=== PATIENT | female | born 1975 | race Two or more races ===

== ENCOUNTER 2016-09-24 15:25 | Emergency (ER) | payer SELFPAY ==
[2016-09-24] MEDS ORDERED: METHYLERGONOVINE MALEATE 0.2 MG TABLET PO ONE (16:25)
[2016-09-24 16:38] LABS: BASOPHIL# 0.1 X 10^3uL (0.0-0.1); EOSINOPHILS 1.7 % (0.0-6.0); EOSINOPHILS# 0.1 X 10^3uL (0.0-0.4); HEMATOCRIT 40.1 % (36.0-48.0); HEMOGLOBIN 13.2 g/dL (12.0-16.0); LYMPHOCYTES 18.2 % (20.0-40.0); LYMPHOCYTES# 1.5 X 10^3uL (0.8-3.8); MEAN CELL VOLUME 94.1 fL (80.0-100.0); MEAN PLATELET VOLUME 6.6 fL (7.4-10.4); MONOCYTES 5.3 % (2.0-10.0); MONOCYTES# 0.4 X 10^3uL (0.2-1.0); NEUTROPHILS 73.8 % (54.0-75.0); NEUTROPHILS# 6.2 X 10^3uL (2.6-6.7); PLATELET COUNT 419 X 10^3uL (130-440); RED BLOOD COUNT 4.26 X 10^6uL (4.20-6.10); RED CELL DISTRIBUTION WIDTH 15.4 % (11.5-14.5); WHITE BLOOD COUNT 8.3 X 10^3uL (3.9-10.7)
[2016-09-24 16:56] LABS: BLOOD UREA NITROGEN 7 mg/dL (7-17); CALCIUM 8.8 mg/dL (8.4-10.2); CHLORIDE 107 mmol/L (98-107); CREATININE 0.5 mg/dL (0.5-1.0); EST GLOMERULAR FILTRATION RATE > 60 mL/min; GLUCOSE 101 mg/dL (70-100); SODIUM 138 mmol/L (137-145)
--- NOTE | 2016-09-24 17:10 | ER PHYSICIAN DOCUMENTATION ---
Physician Documentation [facility] ([place], [place]) Name:Violet Engel Age:41 yrs Sex:Female :1975 Arrival Date:09/24/2016 Time:15:25 Bed3 Private MD:Yamil James ED, Chris Disposition: 09/24/16 16:54 Discharged to Home/Self Care. Impression: Complete Unspecified /Miscarriage w/o Mention of Complication. - Condition is Good. - Discharge Instructions: Miscarriage - , Complete (Spontaneous). - Medical Reconciliation form form. - Follow up: Yamil James MD; When: Tomorrow; Reason: Recheck today's complaints, Continuance of care. - Problem is new. - Symptoms are resolved. - Notes: Drink 2 - 3 quarts of water every day. Take Ibuprofen 600mg by mouth every 6 hours with food for pain. Follow up with Dr. Matute tomorrow afternoon in the clinic. HPI: 09/24 15:30 This 41 yrs old OOther Female presents to ER via Private Vehicle with complaints of cd Vaginal Bleeding. 15:30 The patient presents with vaginal bleeding that is heavy, with clots, with tissue, cd reports using 20 pads or tampons per day. Onset: The symptoms/episode began/occurred acutely, yesterday. Modifying factors: The symptoms are alleviated by nothing, the symptoms are aggravated by nothing. Associated signs and symptoms: Pertinent positives: cramping, Pertinent negatives: dysuria, fever, nausea, vomiting. Ectopic Risk: No risk factors noted. The patient is 7 weeks and US confirmed an IUP with sac. A second recent US revealed no sac and Dr. Matute felt she was having an Incomplete Ab yesterday. Her Vaginal bleeding increased today with clots and tissue passed. Her cramps are now gone. She was dizzy at home, but had no syncope.. 15:40 A recent Rh factor was positive. 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 Ibuprofen Oral - PMHx: None; - PSHx: Ortho repair; ; - Tetanus: unknown. - Ebola Screening: : No symptoms or risks identified at this time. . - Immunization history: Flu Vaccine unknown. - Social history: Smoking status: Patient uses tobacco products, current every day smoker. Patient uses alcohol occasionally. ROS: 15:45 Positive for pelvic pain, vaginal bleeding. cd 15:45 Constitutional: Positive for poor PO intake, Negative for chills, fever. 15:45 : Positive for pelvic pain, vaginal bleeding, Negative for urinary symptoms, flank pain, burning with urination. 15:45 All other systems are negative. Exam: 15:50 Cardiovascular: Regular rate and rhythm with a normal S1 and S2. No gallops, murmurs, cd or rubs. Normal PMI, no JVD. No pulse deficits. Respiratory: Lungs have equal breath sounds bilaterally, clear to auscultation and percussion. No rales, rhonchi or wheezes noted. No increased work of breathing, no retractions or nasal flaring. 15:50 Back: No spinal tenderness. No costovertebral tenderness. Full range of motion. cd 15:50 Constitutional: The patient appears alert, awake, non-diaphoretic, non-toxic, well developed, well nourished, pale. 15:50 Abdomen/GI: Inspection: abdomen appears normal, Bowel sounds: normal, Palpation: abdomen is soft and non-tender, Rectal exam: the exam is deferred. 15:50 : CVA tenderness, is absent, Pelvic Exam: External exam: is normal, Speculum exam: mild bleeding, blood clots in vaginal vault, os that is open, tissue in cervix is seen, tissue in vagina is seen, All products of conception removed with gentle traction on tissue. Miscarriage completed. Minimal BR blood after tissue removed., Bladder: is normal. Vital Signs: 15:44 BP 114 / 73; Pulse 70; Resp 18; Temp 98.3; Pulse Ox 92% ; Weight 72.57 kg; Height 5 ft. ma 0 in. (152.40 cm); Pain 3/10; 16:00 BP 118 / 69; Pulse 71; Pulse Ox 96% on R/A; ma 17:09 BP 114 / 88; Pulse 68; Pulse Ox 98% ; ma 15:44 Body Mass Index 31.25 (72.57 kg, 152.40 cm) ma MDM: 15:35 Data interpreted: Pulse oximetry: on room air is 98 %. Interpretation: normal. cd 15:39 Patient medically screened. cd 16:00 Differential diagnosis: inevitable Ab, complete Ab. cd 16:45 Counseling: I had a detailed discussion with the patient and/or guardian regarding: the cd historical points, exam findings, and any diagnostic results supporting the discharge/admit diagnosis, lab results, the need for outpatient follow up, for a recheck, for a referral to a specialist, an OB/Gyne specialist, to return to the emergency department if symptoms worsen or persist or if there are any questions or concerns that arise at home. 16:48 Response to treatment: the patient's symptoms have resolved after treatment, the cd patient's condition has returned to base line, patient is well hydrated. and as a result, I will discharge patient. 16:50 Data reviewed: vital signs, nurses notes, old medical records, lab test result(s), CBC, cd HCG, and as a result, I will discharge patient, administer IV fluids, NS bolus, Give Toradol IV (which she refused and Methergine 0.2 mg PO. 16:52 Physician consultation: Yamil James MD was called at 16:40, was contacted at 16:40, regarding consult, patient's condition, outpatient follow-up, tomorrow. 09/24 16:40 Order name: CBC AUTO DIF, MDIF/RMOR IF IND EDMS 09/24 16:53 Interpretation: Normal. Dispensed Medications: 15:45 Drug: NS 0.9% 1000 ml; Volume: 1000 ml; Route: IV; Rate: 150 ml/hr; Site: right ma antecubital; Delivery: [place] Tubing; 15:52 Drug: NS 0.9% 1000 ml; Route: IV; Rate: bolus; Site: right forearm; Delivery: [place] ma Tubing; 16:41 Follow up: IV Status: Completed infusion; IV Intake: 1000ml ma 16:19 Drug: Methergine 0.2 mg; Route: PO; ma 17:10 Follow up: Response: No adverse reaction ma 16:31 Not Given (Patient Refused): Toradol 30 mg IVP once ma Signatures: Joi Cohen, RN RN Bryant Lee MD MD
--- NOTE | 2016-09-24 17:10 | ER NURSING DOCUMENTATION ---
Nurse's Notes [facility] Name:Violet Engel Age:41 yrs Sex:Female :1975 Arrival Date:09/24/2016 Time:15:25 Bed3 Private MD:Yamil James Diagnosis:Complete Unspecified /Miscarriage w/o Mention of Complication Presentation: 09/24 15:39 Presenting complaint: Patient states: Pt states she is 7 weeks confirmed by ma ultrasound and Dr Matute States has had bleeding and cramping since yesterday States has used 20 pads since yesterday. Transition of care: Home. 15:39 Method Of Arrival: Private Vehicle ma 15:39 Acuity: JAN 3 ma Triage Assessment: 15:44 General: Appears in no apparent distress, Behavior is cooperative. Pain: Complains of ma pain in suprapubic area. : Reports vaginal bleeding that is heavy flow. VP MARKETING: 15:30 Verified cd Historical: - Allergies: No known drug Allergies; - Home Meds: 1. Ibuprofen Oral - PMHx: None; - PSHx: Ortho repair; ; - Tetanus: unknown. - Ebola Screening: : No symptoms or risks identified at this time. . - Immunization history: Flu Vaccine unknown. - Social history: Smoking status: Patient uses tobacco products, current every day smoker. Patient uses alcohol occasionally. Screenin:48 Infectious Disease Risk None. Abuse screen: Denies threats or abuse. Nutritional ma screening: No deficits noted. Assessment: 15:49 : alicia blood. ma 17:04 Reassessment: Patient denies pain at this time. Patient states feeling better. ma Vital Signs: 15:44 BP 114 / 73; Pulse 70; Resp 18; Temp 98.3; Pulse Ox 92% ; Weight 72.57 kg; Height 5 ft. ma 0 in. (152.40 cm); Pain 3/10; 16:00 BP 118 / 69; Pulse 71; Pulse Ox 96% on R/A; ma 17:09 BP 114 / 88; Pulse 68; Pulse Ox 98% ; ma 15:44 Body Mass Index 31.25 (72.57 kg, 152.40 cm) ma ED Course: 15:29 Patient arrived in ED. arc 15:29 Yamil aJmes MD is Private Physician. arc 15:37 Joi Cohen RN is Primary Nurse. ma 15:39 Bryant Samuels MD is Attending Physician. cd 15:41 Triage completed. ma 15:48 Valuables Given to family. Patient has correct armband on for positive identification. ma Placed in gown. Bed in low position. Call light in reach. Side rails up X2. Cardiac Monitoring On for Nurse Monitoring only. Pulse Ox - RN Monitoring Only NIBP On - RN Monitoring Only. 16:14 Assist Provider Assist provider with pelvic exam: Set up pelvic tray. Performed by sabi Samuels MD POC passed, Vaginal packing inserted. Patient tolerated well. 16:53 Yamil James MD is Referral Physician. cd 17:04 Discontinued IV intact, bleeding controlled, pressure dressing applied, No ma redness/swelling at site. Administered Medications: 15:45 Drug: NS 0.9% 1000 ml; Volume: 1000 ml; Route: IV; Rate: 150 ml/hr; Site: right ma antecubital; Delivery: [place] Tubing; 15:52 Drug: NS 0.9% 1000 ml; Route: IV; Rate: bolus; Site: right forearm; Delivery: [place] ma Tubing; 16:41 Follow up: IV Status: Completed infusion; IV Intake: 1000ml ma 16:19 Drug: Methergine 0.2 mg; Route: PO; ma 17:10 Follow up: Response: No adverse reaction ma 16:31 Not Given (Patient Refused): Toradol 30 mg IVP once ma Intake: 16:41 IV: 1000ml; Total: 1000ml. ma Outcome: 16:54 Discharge ordered by . cd 17:08 Discharged to home ma 17:08 Condition: stable 17:08 Discharge instructions given to patient, Instructed on discharge instructions, follow up and referral plans. Demonstrated understanding of instructions. 17:10 Patient left the ED. ma Signatures: Joi Cohen RN RN ma Daley, Chris, MD MD cd Chew, Amelia, Reg Reg arc
[2016-09-24 17:13] LABS: HCG, QUANTITATIVE 780 mIU/mL
== END 2016-09-24 17:10 | disposition home or self-care (01) ==
LOC: ER 15:25
DX: O03.9 Complete or unspecified spontaneous abortion without complication (principal); E86.0 Dehydration
CPT/HCPCS: 80048; 84702; 85025; 96360; 99283

== ENCOUNTER 2016-10-14 15:54 | Emergency (ER) | payer BC ==
--- NOTE | 2016-10-14 17:24 | ER PHYSICIAN DOCUMENTATION ---
Physician Documentation [facility] Name:Violet Engel Age:41 yrs Sex:Female :1975 Arrival Date:10/14/2016 Time:15:54 Bed2 Private MD: Bryant Muse Disposition: 10/14/16 16:57 Discharged to Home/Self Care. Impression: Influenza - Type B. - Condition is Fair. - Discharge Instructions: INFLUENZA (Adult). - Prescriptions for Tamiflu 75 mg Oral Capsule - take 1 capsule by ORAL route every 12 hours for 5 days; 10 capsule. - Medical Reconciliation form form. - Follow up: Private Physician; When: 7 - 10 days; Reason: Recheck today's complaints, Continuance of care. - Problem is new. - Symptoms are unchanged. - Notes: Take Tylenol 975mg by mouth every 6 hours for 2 - 3 days Take Ibuprofen 600mg by mouth every 6 hours with food for 2 - 3 days Take Tamiflu 75mg by mouth every 12 hours for 5 days. Drink 2 - 3 quarts of water or Gatorade every day. Avoid contact with family members HPI: 10/14 16:00 This 41 yrs old OOther Female presents to ER via Private Vehicle with complaints of FLU cd SYMPTOMS. 16:00 The patient complains of muscle aches, sore throat, fever / chills, headaches and cd congestion.. Onset: The symptom(s)/episode began/occurred acutely, 2 day(s) ago. Severity of symptoms: At their worst the symptoms were moderate in the emergency department the symptoms are unchanged. The patient has not experienced similar symptoms in the past. Historical: - Allergies: No known drug Allergies; - Home Meds: 1. None - PMHx: None; - PSHx: HERNIA REPAIR; acl repair; ; - Tetanus: < 10 years. - Ebola Screening: : Patient negative for fever greater than or equal to 101.5 degrees Fahrenheit, and additional compatible Ebola Virus Disease symptoms. Patient denies exposure to infectious person. Patient denies travel to an Ebola-affected area in the 21 days before illness onset. No symptoms or risks identified at this time. . - Immunization history: Flu Vaccine >1 year. - Social history: Smoking status: Patient uses tobacco products, current every day smoker. ROS: 16:20 Constitutional: Positive for chills, fever, malaise, poor PO intake. cd 16:20 ENT: Positive for sinus congestion, sore throat. 16:20 Neck: Negative for pain with movement, pain at rest. 16:20 Cardiovascular: Negative for chest pain, palpitations. 16:20 Respiratory: Positive for cough, with no reported sputum, Negative for hemoptysis, pleurisy, shortness of breath, sputum production, wheezing. 16:20 Abdomen/GI: Negative for abdominal pain, nausea, vomiting, anorexia. 16:20 Neuro: Negative for acute changes. 16:20 All other systems are negative. Exam: 16:20 Constitutional: The patient appears alert, awake, non-diaphoretic, non-toxic, well cd developed, well nourished, obese. 16:20 ENT: TM's: are normal, Nose: is normal, Posterior pharynx: is normal. 16:20 Cardiovascular: Exam negative for acute changes. 16:20 Respiratory: the patient does not display signs of respiratory distress, Respirations: normal, no acute changes, Breath sounds: are normal, clear throughout. 16:20 Abdomen/GI: Bowel sounds: normal, Palpation: abdomen is soft and non-tender. Vital Signs: 16:23 BP 126 / 86; Pulse 93; Resp 18; Temp 99.8(O); Pulse Ox 92% on R/A; tg MDM: 15:59 Patient medically screened. cd 16:10 Data interpreted: Pulse oximetry: on room air is 92 %. Interpretation: normal. cd 16:20 Differential Diagnosis flu, Viral URI. cd 16:35 Data reviewed: vital signs, nurses notes, old medical records, lab test result(s), and cd as a result, I will discharge patient, administer antibiotics Tamiflu. 16:55 Counseling: I had a detailed discussion with the patient and/or guardian regarding: the cd historical points, exam findings, and any diagnostic results supporting the discharge/admit diagnosis, lab results, the need for outpatient follow up, for a recheck, with the patient's primary care provider, to return to the emergency department if symptoms worsen or persist or if there are any questions or concerns that arise at home. 10/14 16:36 Order name: INFLUENZA A/B; Complete Time: 00:13 EDMS 10/15 00:13 Interpretation: Abnormal: INFLUENZA A/B INF A NEG, B POS. cd Dispensed Medications: No medications were administered Signatures: Harmeet Calvillo RN RN tg Bryant Samuels MD MD cd
--- NOTE | 2016-10-14 17:24 | ER NURSING DOCUMENTATION ---
Nurse's Notes [facility] Name:Violet Engel Age:41 yrs Sex:Female :1975 Arrival Date:10/14/2016 Time:15:54 Bed2 Private MD: Diagnosis:Influenza-Type B Presentation: 10/14 15:59 Acuity: JAN 4 tg 16:19 Presenting complaint: Patient states: Cough, muscle aches, low grade fever. Transition tg of care: patient was not received from another setting of care. 16:19 Method Of Arrival: Private Vehicle tg Triage Assessment: 16:23 General: Appears in no apparent distress, Behavior is cooperative. Neuro: Level of tg Consciousness is awake, alert. Cardiovascular: Capillary refill < 3 seconds. Respiratory: Airway is patent Respiratory effort is even, unlabored, Reports cough that is. Derm: Skin is pink, warm & dry. Musculoskeletal:. Historical: - Allergies: No known drug Allergies; - Home Meds: 1. None - PMHx: None; - PSHx: HERNIA REPAIR; acl repair; ; - Tetanus: < 10 years. - Ebola Screening: : Patient negative for fever greater than or equal to 101.5 degrees Fahrenheit, and additional compatible Ebola Virus Disease symptoms. Patient denies exposure to infectious person. Patient denies travel to an Ebola-affected area in the 21 days before illness onset. No symptoms or risks identified at this time. . - Immunization history: Flu Vaccine >1 year. - Social history: Smoking status: Patient uses tobacco products, current every day smoker. Screenin:25 Infectious Disease Risk Unable to Obtain. Abuse screen: Denies threats or abuse. Denies tg injuries from another. Nutritional screening: No deficits noted. Vital Signs: 16:23 BP 126 / 86; Pulse 93; Resp 18; Temp 99.8(O); Pulse Ox 92% on R/A; tg ED Course: 15:58 Patient arrived in ED. ama 15:59 Harmeet Calvillo, TARYN is Primary Nurse. tg 15:59 Bryant Samuels MD is Attending Physician. cd 15:59 Triage completed. tg 16:25 Notified ED Physician of patient's arrival and chief complaint. Dr. Samuels notified. tg 16:26 Flu Swab done. tg 16:26 Valuables Remains with patient. tg Administered Medications: No medications were administered Outcome: 16:57 Discharge ordered by . alena 17:00 Instructed on discharge instructions, follow up and referral plans. medication usage, tg Prescriptions given X 1. 17:22 Discharged to home ambulatory. tg 17:22 Condition: stable 17:22 Discharge Assessment: Patient awake, alert and oriented x 3. No cognitive and/or functional deficits noted. Patient verbalized understanding of disposition instructions. 17:23 Patient left the ED. tg Signatures: Harmeet Calvillo RN RN tg Bryant Samuels MD MD cd Averdick, Andrew, Reg Reg ama
== END 2016-10-14 17:24 | disposition home or self-care (01) ==
LOC: ER 15:54
DX: J11.1 Influenza due to unidentified influenza virus with other respiratory manifestations (principal); F17.210 Nicotine dependence, cigarettes, uncomplicated
CPT/HCPCS: 87449; 99282